=== PATIENT | female | born 1955 | race Caucasian/White ===

== ENCOUNTER 2017-06-26 19:51 | Emergency (ER) | payer BC ==
[2017-06-26 20:27] LABS: ADD MAN DIFF? NO
[2017-06-26 20:29] LABS: BASO # 0.1 x10^3/uL (0.0-0.2); BASO % 1 % (0-3); EOS # 0.2 x10^3/uL (0.0-0.7); EOS % 2 % (0-3); HEMATOCRIT 42.9 % (36.0-47.0); HEMOGLOBIN 14.2 g/dL (12.0-15.5); LYMPH # 3.9 x10^3/uL (1.0-4.8); LYMPH % 26 % (24-48); MEAN CORPUSCULAR HEMOGLOBIN 29 pg (25-35); MEAN CORPUSCULAR HGB CONC 33 g/dL (31-37); MEAN CORPUSCULAR VOLUME 86 fL (79-100); MONO % 7 % (0-9); NEUT # 9.8 x10^3uL (1.8-7.7); NEUT % 65 % (31-73); PLATELET COUNT 242 x10^3/uL (140-400); RED BLOOD COUNT 4.97 x10^6/uL (3.50-5.40); RED CELL DISTRIBUTION WIDTH 15.2 % (11.5-14.5); WHITE BLOOD COUNT 15.1 x10^3/uL (4.0-11.0)
[2017-06-26] MEDS: IV NORMAL SALINE 1000ML BAG 1,000 ML IV (20:32)
[2017-06-26] MEDS: ONDANSETRON PF 4 MG/2 ML VIAL. IV (20:34)
[2017-06-26] MEDS: KETOROLAC 30 MG/ML INJ. IV (20:35)
[2017-06-26] MEDS: MORPHINE SULFATE 4 MG/ML DISP.SYRIN. IV/SQ ×2 (20:36→21:42)
[2017-06-26 20:40] LABS: ANION GAP 10 (6-14); BLOOD UREA NITROGEN 30 mg/dL (7-20); BUN/CREATININE RATIO 27 (6-20); CARBON DIOXIDE 30 mmol/L (21-32); CHLORIDE 105 mmol/L (98-107); CREATININE 1.1 mg/dL (0.6-1.0); GFR 50.8; GLUCOSE 129 mg/dL (70-99); POTASSIUM 4.1 mmol/L (3.5-5.1); SODIUM 145 mmol/L (136-145)
[2017-06-26 20:45] LABS: ALBUMIN 3.3 g/dL (3.4-5.0); ALBUMIN/GLOBULIN RATIO 0.7 (1.0-1.7); ALK PHOS 119 U/L (46-116); ALT (SGPT) 30 U/L (14-59); AST (SGOT) 20 U/L (15-37); LIPASE 87 U/L (73-393); TOTAL BILIRUBIN 0.3 mg/dL (0.2-1.0); TOTAL PROTEIN 7.9 g/dL (6.4-8.2)
[2017-06-26 21:18] LABS: BILIRUBIN,URINE NEGATIVE (NEG); CLARITY,URINE CLEAR; COLOR,URINE YELLOW; GLUCOSE,URINE NEGATIVE (NEG); NITRITE,URINE NEGATIVE (NEG); PH,URINE 5.5; PROTEIN,URINE NEGATIVE (NEG-TRACE); UROBILINOGEN,URINE 0.2 mg/dL (0.2 mg/dL)
[2017-06-26 21:25] LABS: AMORPHOUS SEDIMENT,UR PRESENT /HPF; BACTERIA,URINE FEW /HPF (0-FEW); RBC,URINE TNTC /HPF (0-2); SQUAMOUS EPITHELIAL CELL,UR MOD /LPF
== END 2017-06-26 22:12 | disposition home or self-care (01) ==
LOC: ER 19:51
DX: N13.2 Hydronephrosis with renal and ureteral calculous obstruction (principal); R10.9 Unspecified abdominal pain; Z79.891 Long term (current) use of opiate analgesic; Z79.899 Other long term (current) drug therapy; Z88.2 Allergy status to sulfonamides
CPT/HCPCS: 36415; 74176; 80053; 81001; 83690; 85025; 87086; 96374; 96375; 99285; J1885; J2270; J2405; J7030

== ENCOUNTER → 2017-06-27 | Outpatient (CLI) | payer BC | END | disposition home or self-care (01) | LOC: RAD 14:06 | DX: N20.2 Calculus of kidney with calculus of ureter (principal) | CPT/HCPCS: 74018 ==

== ENCOUNTER → 2017-09-12 | Outpatient (CLI) | payer BC | END | disposition home or self-care (01) | LOC: RAD 09:16 | DX: I87.8 Other specified disorders of veins (principal); Z87.442 Personal history of urinary calculi | CPT/HCPCS: 74018 ==

== ENCOUNTER 2020-06-10 13:25 | Inpatient (IN) | payer BC ==
[~2020-06-10] VITALS: Ht 160 cm; Wt 128.3 kg
[~2020-06-10 13:25] MED LIST: HYDR-3164 PO; NITR100C62 PO; ONDA4TAB12 PO; TAMS0.4C97 PO
[2020-06-10] MEDS ORDERED: MORPHINE SULFATE 10 MG/ML VIAL. IV ONE ×2 (14:00→15:30)
--- NOTE | 2020-06-10 14:40 | RAD ---
EXAM: Right humerus, 2 views; right forearm, 2 views; right knee, 4 views. HISTORY: Pain. Fall. COMPARISON: None. FINDINGS: Right humerus: 2 views of the right humerus are obtained. There is a comminuted displaced humeral hea d and neck fracture. There is severe subacromial clavicular joint space narrowing with subchondral sc lerosis, subchondral cyst formation and marginal spurring. This includes an inferiorly directed dista l clavicular spur and subacromial spur. There is advanced degenerative change involving the visualize d cervical spine. Right forearm, 2 views of the right forearm are obtained. There is no acute fracture, dislocation or subluxation. There is mild degenerative spurring involving the base of the first metacarpal. Right knee: 4 views of the right knee are obtained. There is no fracture, dislocation or subluxation. There is enthesopathy along the patella. This includes a suspected small chronic fragment osteophyte superior to the patella. There is no joint effusion. IMPRESSION: 1. Comminuted displaced right humeral head and neck fracture. 2. Severe right acromioclavicular joint osteoarthritis. 3. Right patellar enthesopathy. Electronically signed by: Padmini Schaffer MD (06/10/2020 2:38 PM) [facility]
--- NOTE | 2020-06-10 15:23 | ED.ADGEN ---
Past Medical History Past Medical History: Cancer, Hypotension, Kidney Stone, UTI Additional Past Medical Histor: HERPES, BREAST Past Surgical History: Cancer Surgery, Tubal ligation Additional Past Surgical Histo: LEFT BREST LUMPECTOMY Smoking Status: Never Smoker Alcohol Use: None Drug Use: None General Adult EDM: Chief Complaint: UPPER EXTREMITY PAIN HPI: HPI: Patient is 64-year-old female presents to the emergency room after falling. Patient states that she tripped over a dog kennel and fell forward landing on he r right knee. She hit her right arm on the refrigerator on her way down. She is unsure if she tried to catch herself. She denies hitting her head. She does not have loss of consciousness. She not have any syncopal episodes. Patient has pain starting in her lower shoulder that radiates down into her forearm. States she is able to move her wrist and straighten out her arm. She states that she did hit her knee but she was able to walk after the incident. She does not believe that anything is broken within her knee. Review of Systems: Review of Systems: Complete ROS is negative unless otherwise documented in HPI Current Medications: Current Medications Medications (Trade) Dose Ordered Sig/Karsten Start Time Stop Time Status Last Admin Dose Admin Methocarbamol (Robaxin) 500 mg 1X STAT 06/10/20 16:17 06/10/20 16:24 DC 06/10/20 16:32 500 MG Morphine Sulfate (Morphine Sulfate) 5 mg 1X ONCE 06/10/20 15:30 06/10/20 15:31 DC 06/10/20 15:43 5 MG Allergies: Allergies: Allergies Coded Allergies Type Severity Reaction Last Updated Verified Sulfa (Sulfonamide Antibiotics) Allergy Unknown 06/26/17 Yes Physical Exam: PE: General: Awake, alert, NAD. Well Nourished, well hydrated. Cooperative HEENT: Atraumatic, EOMI, PERRL, airway patent, moist oral mucosa Neck: Supple, trachea midline Respiratory: CTA bilaterally, normal effort, no wheezing/crackles CV: RRR, no murmur, cap refill <2 GI: Soft, nondistended, nontender, no masses MSK: Right upper arm deformity, 2+ radial pulse, intact distal sensation, intact movement of elbow, wrist, hand Skin: Warm, dry, intact Neuro: A&O x3, speech NL, sensory and motor grossly intact, no focal deficits Psych: Normal affect, normal mood, not suicidal or homicidal Current Patient Data: Vital Signs: Vital Signs Date Time Temp Pulse Resp B/P (MAP) Pulse Ox O2 Delivery O2 Flow Rate FiO2 06/10/20 13:29 98.1 74 20 148/80 (102) 94 Room Air 98.1 EKG: EKG: [] Heart Score: C/O Chest Pain: N/A Risk Factors: Risk Factors: DM, Current or recent (<one month) smoker, HTN, HLP, family history of CAD, obesity. Risk Scores: Score 0 - 3: 2.5% MACE over next 6 weeks - Discharge Home Score 4 - 6: 20.3% MACE over next 6 weeks - Admit for Clinical Observation Score 7 - 10: 72.7% MACE over next 6 weeks - Early Invasive Strategies Radiology/Procedures: Radiology/Procedures: [] Course & Med Decision Making: Course & Med Decision Making Pertinent Labs and Imaging studies reviewed. (See chart for details) Patient is 64-year-old female who presents to the emergency room complaining of upper arm pain after a fall. X-rays were ordered of the right arm and knee. Patient has a humerus head and neck fracture. Patient was put in a sling. Pain was treated with morphine. Patient did receive fentanyl prior to arrival. Patient has a humerus neck and head fracture with dislocation. CT was ordered per orthopedic surgery recommendation. Patient will be n.p.o. at midnight. Covid test was ordered. Patient will be admitted to the hospital. Dragon Disclaimer: Dragon Disclaimer: This electronic medical record was generated, in whole or in part, using a voice recognition dictation system. Departure Departure Impression: Primary Impression: Humerus head fracture Disposition: ADMITTED INPATIENT Condition: STABLE Referrals: BLADE ROBISON MD (PCP) TEOFILO PENALOZA MD Jun 10, 2020 15:23
[2020-06-10] MEDS ORDERED: METHOCARBAMOL 500 MG TABLET PO STA (16:17)
--- NOTE | 2020-06-10 17:57 | PDOC1 ---
History and Physical Date of Admission Date of Admission DATE: 06/10/20 TIME: 17:44 Identification/Chief Complaint Chief Complaint Fall Source Source: Patient History of Present Illness History of Present Illness Patient 64-year-old female who presents to the ER after mechanical fall today. He states he tripped over a dog kennel and landed on her right arm. She initially complains of pain 10/10. Pain is worse with movement. She denies any head injury. X-ray in ER showed comminuted displaced right humeral head and neck fracture. Orthopedic surgery was consulted and recommended admission for surgery tomorrow. Will admit patient for further medical management. Past Medical History Past Medical History Breast cancer, hypotension, kidney stones, UTIs, HSV Past Surgical History Past Surgical History Left breast lumpectomy, tubal ligation Family History Family History Denies family history Social History Smoke: No ALCOHOL: none Drugs: None Current Problem List Problem List Problems Medical Problems: (1) Humerus head fracture Status: Acute Current Medications Current Medications Current Medications Morphine Sulfate (Morphine Sulfate) 5 mg 1X ONCE IV Last administered on 06/10/20at 14:01; Start 06/10/20 at 14:00; Stop 06/10/20 at 14:01; Status DC Morphine Sulfate (Morphine Sulfate) 5 mg 1X ONCE IV Last administered on 06/10/20at 15:43; Start 06/10/20 at 15:30; Stop 06/10/20 at 15:31; Status DC Methocarbamol (Robaxin) 500 mg 1X STAT PO Last administered on 06/10/20at 16:32; Start 06/10/20 at 16:17; Stop 06/10/20 at 16:24; Status DC Active Scripts Active Ondansetron Odt (Ondansetron) 4 Mg Tab.rapdis 1 Tab PO PRN Q6-8HRS [place] 5-325 Tablet (Acetaminophen/Hydrocodone Bitart) 1 Each Tablet 1 Tab PO PRN Q6HRS PRN Macrobid 100 Mg Capsule (Nitrofurantoin Monohyd/M-Cryst) 100 Mg Capsule 1 Cap PO BID Flomax (Tamsulosin Hcl) 0.4 Mg Cap.er.24h 1 Cap PO DAILY 30 Days Allergies Allergies: Coded Allergies: Sulfa (Sulfonamide Antibiotics) (Verified Allergy, Unknown, 06/26/17) ROS Review of System GENERAL: No history of weight change, weakness or fevers. SKIN: No bruising, hair changes or rashes. EYES: No blurred, double or loss of vision. NOSE AND THROAT: No history of nosebleeds, hoarseness or sore throat. HEART: Denies chest pain, denies palpitations. LUNGS: Denies cough, hemoptysis, wheezing or shortness of breath. GASTROINTESTINAL: Denies nausea, vomiting, abdominal pain. GENITOURINARY: Denies dysuria, frequency, urgency, hematuria. NEUROLOGIC: Denies history of numbness, tingling, tremor or weakness. PSYCHIATRIC: Denies anxiety, denies depression. ENDOCRINE: No history of heat or cold intolerance, polyuria or polydipsia. EXTREMITIES: Right arm pain, right arm weakness. Physical Exam Physical Exam General: Alert, Oriented X3, Cooperative, moderate distress HEENT: PERRLA, EOMI Lungs: Clear to auscultation, Normal air movement Heart: RRR, no murmurs Cardiovascular: S1, S2 Abdomen: Normal bowel sounds, Soft, No tenderness Extremities: Right upper arm deformity; right arm and shoulder splint. No clubbing, No cyanosis Skin: No rashes, No significant lesion Neuro: Normal speech, Normal tone, Sensation intact Psych/Mental Status: Mental status NL, Mood NL Vitals Vitals Vital Signs Date Time Temp Pulse Resp B/P (MAP) Pulse Ox O2 Delivery O2 Flow Rate FiO2 06/10/20 13:29 98.1 74 20 148/80 (102) 94 Room Air 98.1 Labs Labs Laboratory Tests Test 06/10/20 16:34 SARS-CoV-2 Antigen (Rapid) Negative (NEGATIVE) Laboratory Tests Test 06/10/20 16:34 SARS-CoV-2 Antigen (Rapid) Negative (NEGATIVE) Images Images HUMERUS RIGHT EXAM: Right humerus, 2 views; right forearm, 2 views; right knee, 4 views. HISTORY: Pain. Fall. COMPARISON: None. FINDINGS: Right humerus: 2 views of the right humerus are obtained. There is a comminuted displaced humeral head and neck fracture. There is severe subacromial clavicular joint space narrowing with subchondral sclerosis, subchondral cyst formation and marginal spurring. This includes an inferiorly directed distal clavicular spur and subacromial spur. There is advanced degenerative change involving the visualized cervical spine. Right forearm, 2 views of the right forearm are obtained. There is no acute fracture, dislocation or subluxation. There is mild degenerative spurring involving the base of the first metacarpal. Right knee: 4 views of the right knee are obtained. There is no fracture, dislocation or subluxation. There is enthesopathy along the patella. This includes a suspected small chronic fragment osteophyte superior to the patella. There is no joint effusion. IMPRESSION: 1. Comminuted displaced right humeral head and neck fracture. 2. Severe right acromioclavicular joint osteoarthritis. 3. Right patellar enthesopathy. VTE Prophylaxis Ordered VTE Prophylaxis Devices: No VTE Pharmacological Prophylaxi: Yes Assessment/Plan Assessment/Plan Comminuted displaced right humeral head and neck fracture Plan: Consultation placed to orthopedic surgery Patient will be scheduled for surgery tomorrow Will provide pain management CT right arm pending PT/OT FEN - Cardiac diet; then n.p.o. after midnight PPX - Heparin FULL CODE Dispo - inpatient for above; patient names her as her surrogate decision-maker Justifications for Admission Other Justification CARLEY PETERSON MD Jun 10, 2020 17:57
[2020-06-10] MEDS ORDERED: MAG HYDROX/ALUMINUM HYD/SIMETH 30 ML ORAL.SUSP PO PRN (18:00)
[2020-06-10] MEDS ORDERED: CALCIUM CARBONATE 500 MG TAB.CHEW PO PRN (18:00)
[2020-06-10] MEDS ORDERED: oxyCODONE IR 5 MG TABLET PO PRN (18:00)
[2020-06-10] MEDS ORDERED: ONDANSETRON PF 4 MG/2 ML VIAL. IVP PRN (18:00)
[2020-06-10] MEDS ORDERED: ZOLPIDEM 5 MG TABLET. PO PRN (18:00)
[2020-06-10] MEDS ORDERED: MAGNESIUM HYDROXIDE 2,400 MG/30 ML ORAL.SUSP. PO PRN (18:00)
[2020-06-10] MEDS ORDERED: HYDROcodone/APAP 5/325MG 1 TAB TABLET PO PRN (18:00)
[2020-06-10] MEDS ORDERED: BISACODYL 10 MG SUPP.RECT. PR PRN (18:00)
[2020-06-10] MEDS ORDERED: ACETAMINOPHEN 325 MG TABLET. PO PRN (18:00)
--- NOTE | 2020-06-10 18:01 | RAD ---
Examination: CT right shoulder without contrast HISTORY: History of fracture COMPARISON: Radiograph same day exam TECHNIQUE: Axial CT images of the right shoulder performed without contrast. Coronal and sagittal ref ormats are performed Exposure: One or more of the following individualized dose reduction techniques were utilized for thi s examination: 1. Automated exposure control 2. Adjustment of the mA and/or kV according to patient size 3. Use of iterative reconstruction technique FINDINGS: There is comminuted displaced fracture of the humerus head and neck with fracture extending to the gr eater trochanter.The fractured portions of the of the humerus head and neck is within the glenoid inf eriorly and the distal portion of the fractured portion of the humerus is displaced and dislocated an teriorly and inferiorly in relation to glenoid. Small shoulder joint effusion. Moderate degenerative acromioclavicular joint. The right lung grossly appears unremarkable. IMPRESSION: 1. Fracture dislocation of the humerus as described above. Electronically signed by: Solomon Lott MD (06/10/2020 5:59 PM) [id number]
[2020-06-10] MEDS: HYDROcodone/APAP 5/325MG 1 TAB TABLET PO PRN ×2 (19:48→22:05)
[2020-06-10 21:15] VITALS: BP 165/89
--- NOTE | 2020-06-10 21:15 | NUR ---
Admitted to room 412 s/p fracture right humerus. "I fell in the kitchen over a cat kennel." Has scrapes on left forearm. Small abrasion on right knee. States a knee xray was taken and it does not hurt. Wearing sling to right arm. Ice packs applied. Radial pulse 2+, arm pink and fingers moving. Patient unable to name her home meds. States she does check her FSBS daily. States her is obese also and they use scooters if they go out. Has grown step son living w/ them. Informed of NPO status, refuses snack. 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 Call light in reach.
[2020-06-10] MEDS: HEPARIN for SUB-Q USE 5,000 UNIT/ML VIAL. SQ SCH (22:00)
[2020-06-10 23:27] VITALS: BP 149/87
--- NOTE | 2020-06-10 23:43 | NUR ---
Home meds: Unable to state dosages and frequency on some. MVI "thyroid" Metformin BID Gabapentin HS Melatonin Flonase Lortab
[2020-06-11] VITALS (10 sets, daily range): BP systolic 114–143; BP diastolic 59–87
[2020-06-11] MEDS: MORPHINE SULFATE 10 MG/ML VIAL. IV PRN ×4 (04:34→12:51)
[2020-06-11] MEDS: HEPARIN for SUB-Q USE 5,000 UNIT/ML VIAL. SQ SCH ×3 (05:57→20:15)
--- NOTE | 2020-06-11 10:14 | NUR ---
SW following. Discussed with RN, pt from home with spouse, 2L, cardiac diet, rapid COVID-19 negative. Pt having surgery today at 1430. PT/OT to work with pt after surgery. SW will continue to follow.
[2020-06-11] MEDS ORDERED: HYDROmorphone 2 MG/ML VIAL IVP PRN (12:45)
[2020-06-11] MEDS ORDERED: fentaNYL PF VIAL 100 MCG/2 ML VIAL IVP PRN ×2 (12:45)
[2020-06-11] MEDS ORDERED: PROCHLORPERAZINE 10 MG/2 ML VIAL. IVP PRN (12:45)
[2020-06-11] MEDS ORDERED: MORPHINE SULFATE 2 MG/ML VIAL. IVP PRN ×2 (12:45→18:00)
[2020-06-11] MEDS ORDERED: IV RINGERS,LACTATED 1000ML 1,000 ML IV SCH (12:45)
[2020-06-11] MEDS ORDERED: MORPHINE SULFATE 5 MG, KETOROLAC 30MG VIAL 30 MG, ROPIVacaine 0.5% PF 60 ML, EPINEPHrin... INT ART ONE (13:00)
--- NOTE | 2020-06-11 13:35 | NUR ---
transferred to surgery. left arm in sling Addendum: 06/11/20 at 1520 by SANDRA ULLOA RN obtained home meds list and placed in [facility] [facility]
[2020-06-11] MEDS ORDERED: PROPOFOL 10 MG/ML (20ML) VIAL. IV ONE ×2 (13:36→15:56)
[2020-06-11] MEDS ORDERED: fentaNYL PF VIAL 100 MCG/2 ML VIAL ONE ×2 (13:36→18:11)
[2020-06-11] MEDS ORDERED: ROCURONIUM 50 MG/5 ML VIAL. ONE (13:36)
[2020-06-11] MEDS ORDERED: LIDOCAINE 2% PF 5 ML VIAL. ONE (13:36)
[2020-06-11] MEDS ORDERED: GABA300C18 PO (13:41)
[2020-06-11] MEDS ORDERED: MULT-121 PO (13:41)
[2020-06-11] MEDS ORDERED: PROVENTIL HFA6.7 G2 INH (13:41)
[2020-06-11] MEDS ORDERED: LEVO25TA4 PO (13:41)
[2020-06-11] MEDS ORDERED: FLUT16SP NS (13:41)
[2020-06-11] MEDS ORDERED: MELO15TA6 PO (13:41)
[2020-06-11] MEDS ORDERED: METF500T16 PO (13:41)
[2020-06-11] MEDS ORDERED: HYDR-2761 PO (13:41)
--- NOTE | 2020-06-11 14:03 | PDOC2 ---
CONSULT Date of Consult Date of Consult DATE: 06/11/20 TIME: 14:01 Reason for Consult Reason for Consult: Right proximal humerus fracture dislocation Identification/Chief Complaint Chief Complaint Right shoulder pain after a fall Source Source: Chart review, Patient History of Present Illness Reason for Visit: This 64-year-old primarily left-handed woman injured her right shoulder when she fell yesterday, tripping over a dog carrier. She initially complained of pain 10/10. Pain is worse with movement. She denies any head injury. X-ray in ER showed comminuted displaced right humeral head and neck fracture. Orthopedic surgery was consulted and she was admitted to the hospitalist service yesterday with plan for surgery today. Past Medical History Past Medical History Breast cancer, hypotension, kidney stones, UTIs, HSV Past Surgical History Past Surgical History Left breast lumpectomy, tubal ligation Social History No ALCOHOL: none Drugs: None Lives: with Family Current Problem List Problem List Problems Medical Problems: (1) Humerus head fracture Status: Acute Current Medications Current Medications Current Medications Morphine Sulfate (Morphine Sulfate) 5 mg 1X ONCE IV Last administered on 06/10/20at 14:01; Start 06/10/20 at 14:00; Stop 06/10/20 at 14:01; Status DC Morphine Sulfate (Morphine Sulfate) 5 mg 1X ONCE IV Last administered on 06/10/20at 15:43; Start 06/10/20 at 15:30; Stop 06/10/20 at 15:31; Status DC Methocarbamol (Robaxin) 500 mg 1X STAT PO Last administered on 06/10/20at 16:32; Start 06/10/20 at 16:17; Stop 06/10/20 at 16:24; Status DC Ondansetron HCl (Zofran) 4 mg PRN Q6HRS PRN IVP NAUSEA/VOMITING; Start 06/10/20 at 18:00 Al Hydroxide/Mg Hydroxide (Mylanta Plus Xs) 30 ml PRN Q3HRS PRN PO HEARTBURN / GAS; Start 06/10/20 at 18:00 Calcium Carbonate/ Glycine (Tums) 500 mg PRN Q3HRS PRN PO UPSET STOMACH; Start 06/10/20 at 18:00 Zolpidem Tartrate (Ambien) 5 mg PRN QHS PRN PO INSOMNIA, MAY REPEAT IN 1HR Last administered on 06/11/20at 00:03; Start 06/10/20 at 18:00 Oxycodone HCl (Roxicodone) 5 mg PRN Q3HRS PRN PO BREAKTHROUGH PAIN; Start 06/10/20 at 18:00 Acetaminophen/ Hydrocodone Bitart (Lortab 5/325) 1 tab PRN Q4HRS PRN PO MILD PAIN 1-3 Last administered on 06/10/20at 22:05; Start 06/10/20 at 18:00 Acetaminophen/ Hydrocodone Bitart (Lortab 5/325) 2 tab PRN Q4HRS PRN PO MODERATE PAIN, SEVERE PAIN; Start 06/10/20 at 18:00 Acetaminophen (Tylenol) 650 mg PRN Q6HRS PRN PO Headaches, Temp > 101.5F; Start 06/10/20 at 18:00 Magnesium Hydroxide (Milk Of Magnesia) 2,400 mg PRN Q12HR PRN PO CONSTIPATION; Start 06/10/20 at 18:00 Bisacodyl (Dulcolax Supp) 10 mg PRN DAILY PRN [place] CONSTIPATION; Start 06/10/20 at 18:00 Heparin Sodium (Porcine) (Heparin Sodium) 5,000 unit Q8HRS SQ ; Start 06/10/20 at 22:00 Morphine Sulfate (Morphine Sulfate) 5 mg PRN Q2HRS PRN IV PAIN Last adm inistered on 06/11/20at 12:51; Start 06/10/20 at 18:15 Morphine Sulfate 5 mg/Ketorolac Tromethamine 30 mg/Ropivacaine 60 ml/Epinephrine HCl 0.5 mg/Sodium Chloride 100 ml @ 100 mls/hr 1X ONCE INT ART ; Start 06/11/20 at 13:00; Stop 06/11/20 at 13:59; Status DC Fentanyl Citrate (Fentanyl 2ml Vial) 25 mcg PRN Q5MIN PRN IVP MILD PAIN 1-3; Start 06/11/20 at 12:45; Stop 06/11/20 at 22:00 Fentanyl Citrate (Fentanyl 2ml Vial) 50 mcg PRN Q5MIN PRN IVP MODERATE PAIN 4- 6; Start 06/11/20 at 12:45; Stop 06/11/20 at 22:00 Morphine Sulfate (Morphine Sulfate) 1 mg PRN Q10MIN PRN IVP SEVERE PAIN 7-10; Start 06/11/20 at 12:45; Stop 06/11/20 at 22:00 Ringer's Solution 1,000 ml @ 30 mls/hr Q24H IV ; Start 06/11/20 at 12:45; Stop 06/12/20 at 00:44 Hydromorphone HCl (Dilaudid) 0.5 mg PRN Q10MIN PRN IVP SEVERE PAIN 7-10, 2nd CHOICE; Start 06/11/20 at 12:45; Stop 06/11/20 at 22:00 Prochlorperazine Edisylate (Compazine) 5 mg PACU PRN PRN IVP NAUSEA, MRX1; Start 06/11/20 at 12:45; Stop 06/11/20 at 22:00 Propofol (Diprivan) 200 mg STK-MED ONCE IV ; Start 06/11/20 at 13:36; Stop 06/11/20 at 13:36; Status DC Lidocaine HCl (Lidocaine Pf 2% Vial) 5 ml STK-MED ONCE .ROUTE ; Start 06/11/20 at 13:36; Stop 06/11/20 at 13:36; Status DC Rocuronium [place] (Zemuron) 50 mg STK-MED ONCE .ROUTE ; Start 06/11/20 at 13:36; Stop 06/11/20 at 13:36; Status DC Fentanyl Citrate (Fentanyl 2ml Vial) 100 mcg STK-MED ONCE .ROUTE ; Start 06/11/20 at 13:36; Stop 06/11/20 at 13:36; Status DC Active Scripts Active Reported Fluticasone Propionate Nasal [place] (Fluticasone Propionate) 16 Gm [place].susp 2 [place] NS HS Multiple Vitamins (Multivitamin) 1 Each Tablet 1 Tab PO DAILY 30 Days Metformin Hcl 500 Mg Tablet 500 Mg PO BIDWMEALS Proventil Hfa (Albuterol Sulfate) 6.7 Gm Hfa.aer.ad 1 Puff INH DAILY Hydrocodone-Apap 5-325 (Hydrocodone Bit/Acetaminophen) 1 Tab Tablet 1 Tab PO PRN Q4HRS PRN Levothyroxine Sodium 25 Mcg Tablet 1 Tab PO DAILY Gabapentin (Gabapentin) 300 Mg Capsule 600 Mg PO HS Mobic (Meloxicam) 15 Mg Tablet 1 Tab PO DAILY Allergies Allergies: Coded Allergies: Sulfa (Sulfonamide Antibiotics) (Verified Allergy, Unknown, 06/26/17) ROS Review of System GENERAL: No history of weight change, weakness or fevers. SKIN: No bruising, hair changes or rashes. EYES: No blurred, double or loss of vision. NOSE AND THROAT: No history of nosebleeds, hoarseness or sore throat. HEART: Denies chest pain, denies palpitations. LUNGS: Denies cough, hemoptysis, wheezing or shortness of breath. GASTROINTESTINAL: Denies nausea, vomiting, abdominal pain. GENITOURINARY: Denies dysuria, frequency, urgency, hematuria. NEUROLOGIC: Denies history of numbness, tingling, tremor or weakness. PSYCHIATRIC: Denies anxiety, denies depression. ENDOCRINE: No history of heat or cold intolerance, polyuria or polydipsia. EXTREMITIES: Right arm pain, right arm weakness. Physical Exam General: Alert, Cooperative HEENT: Atraumatic Lungs: Normal air movement Heart: Regular rate Abdomen: Soft Extremities: Other (The gross alignment of the right shoulder is normal and does not appear dislocated despite the CT scan results although the swelling and body habitus obscure the landmarks. The patient holds the shoulder splinted without any spontaneous motion. There is tenderness at the proximal humerus. There is no ecchymosis at this time. The skin is intact over the fracture and otherwise normal. There is slight swelling throughout the upper extremity. Sensory and motor function seem intact for the radial ulnar and median nerves but are difficult to assess completely because of the shoulder pain. Capillary refill is normal without evidence of ischemia or vascular injury. Rotator cuff strength is not possible to test today because of the shoulder pain) Neuro: Normal tone, Sensation intact Psych/Mental Status: Mental status NL, Mood NL Vitals VITALS Vital Signs Date Time Temp Pulse Resp B/P (MAP) Pulse Ox O2 Delivery O2 Flow Rate FiO2 06/11/20 10:39 20 Room Air 06/11/20 10:39 98.2 93 127/66 (86) 94 98.2 06/11/20 08:00 2.0 Labs Labs Laboratory Tests Test 06/10/20 16:34 06/10/20 22:58 SARS-CoV-2 RNA (LOC) Negative (Negative) SARS-CoV-2 Antigen (Rapid) Negative (NEGATIVE) Glucose (Fingerstick) 149 mg/dL (70-99) Laboratory Tests Test 06/10/20 16:34 06/10/20 22:58 SARS-CoV-2 RNA (LOC) Negative (Negative) SARS-CoV-2 Antigen (Rapid) Negative (NEGATIVE) Glucose (Fingerstick) 149 mg/dL (70-99) Images Images Reports reviewed, images independently reviewed. [facility] [address] [place] [address] IMAGING REPORT Signed PATIENT: TERI VEGA ACCOUNT: [id number] : 1955 LOCATION: ER AGE: 64 SEX: F EXAM STATUS: REG ER ORD. PHYSICIAN: TEOFILO PENALOZA MD REASON: fall,extreme pain right shoulder PROCEDURE: HUMERUS RIGHT EXAM: Right humerus, 2 views; right forearm, 2 views; right knee, 4 views. HISTORY: Pain. Fall. COMPARISON: None. FINDINGS: Right humerus: 2 views of the right humerus are obtained. There is a comminuted displaced humeral head and neck fracture. There is severe subacromial clavicular joint space narrowing with subchondral sclerosis, subchondral cyst formation and marginal spurring. This includes an inferiorly directed distal clavicular spur and subacromial spur. There is advanced degenerative change involving the visualized cervical spine. Right forearm, 2 views of the right forearm are obtained. There is no acute fracture, dislocation or subluxation. There is mild degenerative spurring involving the base of the first metacarpal. Right knee: 4 views of the right knee are obtained. There is no fracture, dislocation or subluxation. There is enthesopathy along the patella. This includes a suspected small chronic fragment osteophyte superior to the patella. There is no joint effusion. IMPRESSION: 1. Comminuted displaced right humeral head and neck fracture. 2. Severe right acromioclavicular joint osteoarthritis. 3. Right patellar enthesopathy. Electronically signed by: Padmini Fajardo MD (06/10/2020 2:38 PM) [facility] DICTATED and SIGNED BY: PADMINI FAJARDO MD DATE: 06/10/20 1435 [facility] [address] [place] [address] IMAGING REPORT Signed PATIENT: TERI VEGA ACCOUNT: [id number] : 1955 LOCATION: ER AGE: 64 SEX: F EXAM STATUS: REG ER ORD. PHYSICIAN: TEOFILO PENALOZA MD REASON: fracture PROCEDURE: CT UPPR EXTREMTY WO CONTRST RT Examination: CT right shoulder without contrast HISTORY: History of fracture COMPARISON: Radiograph same day exam TECHNIQUE: Axial CT images of the right shoulder performed without contrast. Coronal and sagittal reformats are performed Exposure: One or more of the following individualized dose reduction techniques were utilized for this examination: 1. Automated exposure control 2. Adjustment of the mA and/or kV according to patient size 3. Use of iterative reconstruction technique FINDINGS: There is comminuted displaced fracture of the humerus head and neck with fracture extending to the greater trochanter.The fractured portions of the of the humerus head and neck is within the glenoid inferiorly and the distal portion of the fractured portion of the humerus is displaced and dislocated anteriorly and inferiorly in relation to glenoid. Small shoulder join t effusion. Moderate degenerative acromioclavicular joint. The right lung grossly appears unremarkable. IMPRESSION: 1. Fracture dislocation of the humerus as described above. Electronically signed by: Solomon Lott MD (06/10/2020 5:59 PM) [id number] Assessment/Plan Assessment/Plan 4-part fracture of surgical neck of right humerus, initial encounter for closed fracture S42.113I I spoke to her about options for treatment. Based on her bone quality, and the severity of the fracture dislocation I do recommend arthroplasty treatment rather than any attempt at internal fixation. Nonoperative treatment would also be a consideration but she has severe pain and this is nearly dislocated and surgery seems indicated acutely in this case, rather than a delayed reverse arthroplasty. She has no history of prior rotator cuff issues, so she may have an intact cuff. I would recommend a hemiarthroplasty at this time with tuberosity repair but I am prepared to do reverse shoulder arthroplasty if that becomes necessary intraoperatively. I spoke to her about the expected outcomes, and that regardless of treatment she is unlikely to get a normal shoulder but she should get a functional shoulder with minimal pain if things go as expected. We talked about the potential risks of stiffness, dislocation, infection, additional fractures, neurovascular injury, bleeding, need for revision surgery, or other potential surgical or anesthetic complications. All of her questions about surgery were answered and she desires to proceed. PATTIE PUGH MD Jun 11, 2020 14:03
[2020-06-11] MEDS ORDERED: ceFAZolin SODIUM 3 GM in IV DEXTROSE 5% 100ML 100 ML IV PRN (14:30)
--- NOTE | 2020-06-11 14:34 | PDOC ---
[facility] PROGRESS NOTE Date of Service DOS: DATE: 06/11/20 TIME: 14:39 Chief Complaint Chief Complaint Comminuted displaced right humeral head and neck fracture IFG - sliding scale Nephrolithiasis - cont hydration Plan: Consultation placed to orthopedic surgery Patient will be scheduled for surgery Will provide pain management PT/OT FEN - Cardiac diet; then n.p.o. after midnight PPX - Heparin FULL CODE Dispo - inpatient for above; patient names her as her surrogate decision-maker History of Present Illness History of Present Illness Ms Maharaj is a 64-year-old female w/ PMHx nephrolithiasis, breast cancer s/p lumpectomy, who presents to the ER after mechanical fall today. He states he tripped over a dog kennel and landed on her right arm. She initially complains of pain 10/10. Pain is worse with movement. She denies any head injury. X-ray in ER showed comminuted displaced right humeral head and neck fracture. Orthopedic surgery was consulted and recommended admission for ORIF. Admit patient for further medical management. Glucose elevated, no history of insulin use, but on meformin, presumably for IFG or prediabetes. Pain is controlled when not moving her arm, she is resting it on pillow. No SOB or CP. She is hungry Vitals/I&O Vitals/I&O: Vital Signs Date Time Temp Pulse Resp B/P (MAP) Pulse Ox O2 Delivery O2 Flow Rate FiO2 06/11/20 10:39 20 Room Air 06/11/20 10:39 98.2 93 127/66 (86) 94 98.2 06/11/20 08:00 2.0 I & O 06/10/20 06/10/20 06/11/20 14:52 22:52 06:52 Intake Total 240 ml Balance 240 ml Physical Exam General: Alert, Cooperative Heart: Regular rate Abdomen: Soft Extremities: Other (The gross alignment of the right shoulder is normal and does not appear dislocated despite the CT scan results although the swelling and body habitus obscure the landmarks. The patient holds the shoulder splinted without any spontaneous motion. There is tenderness at the proximal humerus. There is no ecchymosis at this time. The skin is intact over the fracture and otherwise normal. There is slight swelling throughout the upper extremity. Sensory and motor function seem intact for the radial ulnar and median nerves but are difficult to assess completely because of the shoulder pain. Capillary refill is normal without evidence of ischemia or vascular injury. Rotator cuff strength is not possible to test today because of the shoulder pain) Labs Labs: Laboratory Tests Test 06/10/20 16:34 06/10/20 22:58 SARS-CoV-2 RNA (LOC) Negative (Negative) SARS-CoV-2 Antigen (Rapid) Negative (NEGATIVE) Glucose (Fingerstick) 149 mg/dL (70-99) Assessment and Plan Assessmemt and Plan Problems Medical Problems: (1) 4-part fracture of surgical neck of right humerus, initial encounter for closed fracture Status: Acute (2) Humerus head fracture Status: Acute Goals of Care: Advance Care Planning: Total time spent [id number] with patient greater than 16 minutes in discussion with goals of care, comfort care, end-of-life care, pain management, code status Comment Review of Relevant I have reviewed the following items evette (where applicable) has been applied. Medications: Current Medications Medications (Trade) Dose Ordered Sig/Karsten Route PRN Reason Start Time Stop Time Status Last Admin Dose Admin Morphine Sulfate (Morphine Sulfate) 5 mg 1X ONCE IV 06/10/20 15:30 06/10/20 15:31 DC 06/10/20 15:43 Methocarbamol (Robaxin) 500 mg 1X STAT PO 06/10/20 16:17 06/10/20 16:24 DC 06/10/20 16:32 Zolpidem Tartrate (Ambien) 5 mg PRN QHS PRN PO INSOMNIA, MAY REPEAT IN 1HR 06/10/20 18:00 06/11/20 00:03 Acetaminophen/ Hydrocodone Bitart (Lortab 5/325) 1 tab PRN Q4HRS PRN PO MILD PAIN 1-3 06/10/20 18:00 06/10/20 22:05 Morphine Sulfate (Morphine Sulfate) 5 mg PRN Q2HRS PRN IV PAIN 06/10/20 18:15 06/11/20 12:51 Ringer's Solution 1,000 ml @ 30 mls/hr Q24H IV 06/11/20 12:45 06/12/20 00:44 06/11/20 14:26 Justifications for Admission Other Justification Right shoulder fracture MONICA JUAREZ MD Jun 11, 2020 14:33
[2020-06-11] MEDS: INSULIN LISPRO 100 UNIT/ML 3ML VIAL for OP,RR ONLY. SQ PRN ×2 (14:37→18:28)
[2020-06-11] MEDS ORDERED: SUCCINYLCHOLINE 200 MG/10 ML VIAL. ONE (14:40)
[2020-06-11] MEDS ORDERED: ePHEDrine PF IN SALINE 50 MG/10 ML SYRINGE. IV ONE (15:32)
[2020-06-11] MEDS ORDERED: PHENYLEPHRINE in 0.9% NACL PF 1 MG/10 ML SYRINGE. IV ONE (15:32)
[2020-06-11] MEDS ORDERED: DESFLURANE 61 TO 120 MINUTES IH ONE (15:32)
[2020-06-11] MEDS ORDERED: DEXAMETHASONE SOD PHOS 4 MG/ML VIAL ONE (15:34)
[2020-06-11] MEDS ORDERED: ONDANSETRON PF 4 MG/2 ML VIAL. ONE (15:34)
[2020-06-11] MEDS ORDERED: GLYCOPYRROLATE 1 MG/5 ML VIAL. ONE (15:34)
[2020-06-11] MEDS ORDERED: NEOSTIGMINE METHYLSULFATE 5 MG/5 ML SYRINGE. ONE (15:35)
[2020-06-11] MEDS ORDERED: VANCOMYCIN 1 GM VIAL. ONE (16:35)
[2020-06-11] MEDS ORDERED: DEXTROSE 50% 25 GM / 50ML DISP.SYRIN. IV PRN ×2 (18:00→22:15)
[2020-06-11] MEDS ORDERED: ONDANSETRON PF 4 MG/2 ML VIAL. IVP PRN (18:00)
[2020-06-11] MEDS ORDERED: POLYETHYLENE GLYCOL 3350 17 GM PACKET. PO PRN (18:00)
[2020-06-11] MEDS ORDERED: oxyCODONE/APAP 5/325 1 TAB TABLET PO PRN ×2 (18:00→18:15)
[2020-06-11] MEDS ORDERED: MORPHINE SULFATE 4 MG/ML VIAL. IVP PRN (18:00)
[2020-06-11] MEDS: fentaNYL PF VIAL 100 MCG/2 ML VIAL IVP PRN ×3 (18:14→18:36)
[2020-06-11] MEDS ORDERED: PROCHLORPERAZINE 10 MG/2 ML VIAL. ONE (18:24)
--- NOTE | 2020-06-11 18:24 | PDOC4 ---
Operative Note Operative Note Date of Procedure: June 11, 2020 Pre-Op Diagnosis: 4-part fracture of surgical neck of right humerus, initial encounter for closed fracture S42.241A Post-Op Diagnosis: 4-part fracture of surgical neck of right humerus, initial encounter for closed fracture S42.241A Procedure: Right shoulder, open treatment of proximal humeral fracture, with tuberosity repair and with proximal humeral prosthetic replacement CPT 48408 Surgeon: Pattie Ward MD Supervisor Fertilizer Processing: Cher CAMPOS Anesthesia: General EBL: 300 mL Specimens Obtained: none Complications: none Drains: none Implants: Biomet comprehensive shoulder system humeral fracture stem porous plasma 8 mm, 122 mm long. Comprehensive shoulder system fracture positioning sleeve 10 mm sleeve for use with 8 mm fracture stem. Comprehensive shoulder system standard taper adapter. Comprehensive shoulder system modular head variable offset 38 mm head, 19 mm height, 39 mm radius of curvature. Indications for Procedure: This patient is a 64-year-old with comminuted displ aced right proximal humerus fracture. I spoke to her about options for treatment. Based on her bone quality, and the severity of the fracture dislocation I do recommend arthroplasty treatment rather than any attempt at internal fixation. Nonoperative treatment would also be a consideration but she has severe pain and this is nearly dislocated and surgery seems indicated acutely in this case, rather than a delayed reverse arthroplasty. She has no history of prior rotator cuff issues, so she may have an intact cuff. I would recommend a hemiarthroplasty at this time with tuberosity repair but I am prepared to do reverse shoulder arthroplasty if that becomes necessary intraoperatively. I spoke to her about the expected outcomes, and that regardless of treatment she is unlikely to get a normal shoulder but she should get a functional shoulder with minimal pain if things go as expected. We talked about the potential risks of stiffness, dislocation, infection, additional fractures, neurovascular injury, bleeding, need for revision surgery, or other potential surgical or anesthetic complications. All of her questions about surgery were answered and she desires to proceed. Procedure in Detail: The patient was identified in the preoperative holding area. The correct right shoulder was marked by me with a surgical marker. The patient was taken to the operating room where a general anesthetic was used. Preoperative antibiotics were given intravenously. A timeout procedure was performed. The patient was positioned in the beachchair position, and sterile skin prep was performed followed by sterile drapes. The arm was draped in an impervious stockinette, and a spider arm gonzalez was used. A deltopectoral incision was planned with a skin marker and bony landmarks were marked. The skin incision was made over the coracoid, and extended to the deltoid insertion laterally. Sharp dissection was used and Bovie electrocautery was used for hemostasis. The cephalic vein was ligated. The deltoid was retracted carefully. The fracture was easily identified and markedly displaced. A Kobel retractor was placed inferior to the coracoid along the strap muscles, with care made to protect the musculocutaneous nerve. The deltoid was retracted laterally with the Kobell. The biceps tendon was identified and used as a landmark. The intertubercular sulcus was divided with an osteotome, and multiple #5 Ethibond sutures were placed as traction sutures and the greater and lesser tuberosities. These were retracted. The humeral head fragment was comminuted and was removed. A biceps tenotomy was performed. The humeral shaft was prepared.. Sequential reaming was performed with a T- handle manual reamer. The height of the final stem was assessed based on the remaining bony anatomy such as the medial calcar curvature of the humerus. Based on the reamer size, the tap was used for the shaft, and then the 10 mm fracture positioning sleeve was inserted without difficulty to its planned depth. Trial components were applied using the retroversion guides, and a satisfactory alignment and height appeared satisfactory with the size 8 trial implant for a cemented stem. I proceeded with a hemiarthroplasty for treatment of the fracture. Trial head sizes were used, until satisfactory shoulder stability was noted with good range of motion. Trial head and neck combinations were used to find the appropriate height and stability. Slight subluxation of the humeral head was possible, slightly less than 50% of the glenoid with to sublux the head with manual pressure. The trial components were removed. All outer gloves were changed. Copious saline irrigation was used with the [place] InterPulse nozzleman. The Arthrex FiberTape Tendon Compression Bridge system was used for the tuberosity repair. Drill holes and sutures for this device were passed before the final implants were placed, with the sutures planned passing medial to the final stem. One package of Rally HV bone cement was vacuum mixed and placed into a cement gun. The cement was applied to the midportion of the humeral stem prosthesis. The final implant was inserted without difficulty. This was kept at its planned height until the cement hardened. The final 38 mm x 19 mm head was secured to the upper humeral baseplate, and the shoulder reduced a final time. Good stability throughout the range of motion was noted. The tensioning device for the Arthrex fiber tape tendon compression device was used. Sutures were tensioned and then tied. Augmentation suture was performed to further stabilize the tuberosities using sutures through the holes in the prosthesis, with #5 Ethibond suture. Copious saline irrigation was used. 1 g of vancomycin was placed. The deltoid was repaired with #1 Vicryl [id number] sutures. The skin edges were injected with 0.25% bupivacaine with epinephrine. My trust manager assistant closed the subcutaneous tissues with #2-0 Vicryl inverted interrupted sutures. She repaired the skin with damir. Sterile dressings were applied. Needle and sponge counts were correct. There were no apparent complications. PATTIE WARD MD Jun 11, 2020 18:24
--- NOTE | 2020-06-11 19:45 | NUR ---
Returned from PACU, post op VS per unit protocol started . .Plan of care discussed with patient and .
--- NOTE | 2020-06-11 19:49 | RAD ---
EXAM: Right shoulder, 2 views. HISTORY: Arthroplasty. COMPARISON: None. FINDINGS: 2 views of the right shoulder obtained. There is a right shoulder arthroplasty in expected position. There is soft tissue gas and there are damir due to recent surgery. There is degenerative acromioclavicular joint spurring. There is right lower lobe linear atelectasis and a possible small right pleural effusion or right extrapleural fat. IMPRESSION: Right shoulder arthroplasty in expected position. Electronically signed by: Padmini Schaffer MD (06/11/2020 7:47 PM) [facility]
[2020-06-11] MEDS ORDERED: GABAPENTIN 300 MG CAPSULE. PO SCH (21:00)
[2020-06-11] MEDS ORDERED: FLUTICASONE 50MCG/NASAL SPRAY 16GM BOTTLE. NS SCH (21:00)
[2020-06-11] MEDS: ceFAZolin SODIUM 3 GM in IV DEXTROSE 5% 100ML 100 ML IV SCH (21:15)
[2020-06-11] MEDS: IV 1/2 NORMAL SALINE 1,000 ML IV SCH (21:48)
[2020-06-12 03:21] VITALS: BP 108/61
[2020-06-12] MEDS: ceFAZolin SODIUM 3 GM in IV DEXTROSE 5% 100ML 100 ML IV SCH ×2 (03:25→09:02)
[2020-06-12] MEDS: HEPARIN for SUB-Q USE 5,000 UNIT/ML VIAL. SQ SCH ×2 (05:28→14:00)
[2020-06-12] MEDS ORDERED: MAGNESIUM HYDROXIDE 2,400 MG/30 ML ORAL.SUSP. PO PRN (06:00)
[2020-06-12] MEDS ORDERED: LEVOTHYROXINE 25 MCG TABLET. PO SCH (06:00)
[2020-06-12 06:58] LABS: BASO % 0 % (0-3); EOS % 0 % (0-3); HEMATOCRIT 36.2 % (36.0-47.0); HEMOGLOBIN 11.5 g/dL (12.0-15.5); LYMPH # 2.5 x10^3/uL (1.0-4.8); LYMPH % 14 % (24-48); MEAN CORPUSCULAR HEMOGLOBIN 28 pg (25-35); MEAN CORPUSCULAR HGB CONC 32 g/dL (31-37); MEAN CORPUSCULAR VOLUME 87 fL (79-100); MONO # 1.3 x10^3/uL (0.0-1.1); MONO % 7 % (0-9); NEUT # 14.7 x10^3/uL (1.8-7.7); NEUT % 79 % (31-73); PLATELET COUNT 226 x10^3/uL (140-400); RED BLOOD COUNT 4.17 x10^6/uL (3.50-5.40); RED CELL DISTRIBUTION WIDTH 15.3 % (11.5-14.5); WHITE BLOOD COUNT 18.6 x10^3/uL (4.0-11.0)
[2020-06-12 07:00] VITALS: BP 130/63
[2020-06-12 07:11] LABS: CALCIUM 8.6 mg/dL (8.5-10.1); CREATININE 0.8 mg/dL (0.6-1.0); GFR 72.7; POTASSIUM 4.3 mmol/L (3.5-5.1)
[2020-06-12] MEDS: IV 1/2 NORMAL SALINE 1,000 ML IV SCH (07:20)
[2020-06-12] MEDS: INSULIN LISPRO 300 UNITS/3 ML VIAL. SQ SCH ×2 (08:00→12:00)
[2020-06-12] MEDS ORDERED: metFORMIN 500 MG TABLET PO SCH (08:00)
[2020-06-12] MEDS ORDERED: ASPIRIN 325 MG TABLET PO SCH (08:00)
[2020-06-12] MEDS ORDERED: SENNOSIDES/DOCUSATE 8.6/50MG TABLET. PO SCH (09:00)
[2020-06-12] MEDS ORDERED: NON FORMULARY ITEM (Albuterol Sulfate (Proventil Hfa) 1 PUFF) INH SCH (09:00)
[2020-06-12] MEDS ORDERED: ALBUTEROL SULFATE 2.5 MG/3 ML NEBU. NEB PRN (09:00)
[2020-06-12] MEDS ORDERED: MULTIVITAMIN with MINERAL TABLET. PO SCH (09:00)
--- NOTE | 2020-06-12 09:18 | PDOC ---
[employer] PROGRESS NOTE Date of Service DOS: DATE: 06/12/20 TIME: 09:12 Chief Complaint Chief Complaint Comminuted displaced right humeral head and neck fracture IFG - sliding scale Nephrolithiasis - cont hydration Plan: Consultation placed to orthopedic surgery Patient will be scheduled for surgery Will provide pain management PT/OT FEN - Cardiac diet; then n.p.o. after midnight PPX - Heparin FULL CODE Dispo - inpatient for above; patient names her as her surrogate decision-maker History of Present Illness History of Present Illness Ms Maharaj is a 64-year-old female w/ PMHx nephrolithiasis, breast cancer s/p lumpectomy, who presents to the ER after mechanical fall today. He states he tripped over a dog kennel and landed on her right arm. She initially complains of pain 10/10. Pain is worse with movement. She denies any head injury. X-ray in ER showed comminuted displaced right humeral head and neck fracture. Orthopedic surgery was consulted and recommended admission for ORIF. Admit patient for further medical management. Glucose elevated, no history of insulin use, but on meformin, presumably for IFG or prediabetes. 06/11: Pain is controlled when not moving her arm, she is resting it on pillow. No SOB or CP. To OR today. Right shoulder, open treatment of proximal humeral fracture, with tuberosity repair and with proximal humeral prosthetic replacement Passing flatus. Pain is well controlled. Surgical site looks good. Ortho was discussed with nursing. Patient stable for discharge and have outpatient follow-up. Of advised to continue sling and nonweightbearing status until Ortho follow-up outpatient and to take aspirin prophylaxis. She already has hydrocodone at home for outside active prescription and does have gabapentin which was recommended be 900 mg p.o. nightly I advised her to transition to 300 mg p.o. 3 times daily while she is in the recovery. I did take aspirin for 30 days. Vitals/I&O Vitals/I&O: Vital Signs Date Time Temp Pulse Resp B/P (MAP) Pulse Ox O2 Delivery O2 Flow Rate FiO2 06/12/20 07:00 98.2 106 16 130/63 (85) 98 Room Air 98.2 06/12/20 03:21 3.0 I & O 06/11/20 06/11/20 06/12/20 15:00 23:00 07:00 Intake Total 1600 ml 780 ml Output Total 300 ml 500 ml Balance 1300 ml 280 ml Physical Exam General: Alert, Cooperative Heart: Regular rate Abdomen: Soft Extremities: Other (The gross alignment of the right shoulder is normal and does not appear dislocated despite the CT scan results although the swelling and body habitus obscure the landmarks. The patient holds the shoulder splinted without any spontaneous motion. There is tenderness at the proximal humerus. There is no ecchymosis at this time. The skin is intact over the fracture and otherwise normal. There is slight swelling throughout the upper extremity. Sensory and motor function seem intact for the radial ulnar and median nerves but are difficult to assess completely because of the shoulder pain. Capillary refill is normal without evidence of ischemia or vascular injury. Rotator cuff strength is not possible to test today because of the shoulder pain) Labs Labs: Laboratory Tests Test 06/11/20 14:03 06/11/20 18:24 06/11/20 21:04 06/12/20 06:00 Glucose (Fingerstick) 147 mg/dL (70-99) 231 mg/dL (70-99) 214 mg/dL (70-99) White Blood Count 18.6 x10^3/uL (4.0-11.0) Red Blood Count 4.17 x10^6/uL (3.50-5.40) Hemoglobin 11.5 g/dL (12.0-15.5) Hematocrit 36.2 % (36.0-47.0) Mean Corpuscular Volume 87 fL (79-100) Mean Corpuscular Hemoglobin 28 pg (25-35) Mean Corpuscular Hemoglobin Concent 32 g/dL (31-37) Red Cell Distribution Width 15.3 % (11.5-14.5) Platelet Count 226 x10^3/uL (140-400) Neutrophils (%) (Auto) 79 % (31-73) Lymphocytes (%) (Auto) 14 % (24-48) Monocytes (%) (Auto) 7 % (0-9) Eosinophils (%) (Auto) 0 % (0-3) Basophils (%) (Auto) 0 % (0-3) Neutrophils # (Auto) 14.7 x10^3/uL (1.8-7.7) Lymphocytes # (Auto) 2.5 x10^3/uL (1.0-4.8) Monocytes # (Auto) 1.3 x10^3/uL (0.0-1.1) Eosinophils # (Auto) 0.0 x10^3/uL (0.0-0.7) Basophils # (Auto) 0.0 x10^3/uL (0.0-0.2) Sodium Level 141 mmol/L (136-145) Potassium Level 4.3 mmol/L (3.5-5.1) Chloride Level 106 mmol/L (98-107) Carbon Dioxide Level 31 mmol/L (21-32) Anion Gap 4 (6-14) Blood Urea Nitrogen 20 mg/dL (7-20) Creatinine 0.8 mg/dL (0.6-1.0) Estimated GFR (Cockcroft-Gault) 72.7 Glucose Level 155 mg/dL (70-99) Calcium Level 8.6 mg/dL (8.5-10.1) Test 06/12/20 08:10 Glucose (Fingerstick) 139 mg/dL (70-99) Assessment and Plan Assessmemt and Plan Problems Medical Problems: (1) 4-part fracture of surgical neck of right humerus, initial encounter for closed fracture Status: Acute (2) Humerus head fracture Status: Acute Goals of Care: Advance Care Planning: Total time spent [id number] with patient greater than 16 minutes in discussion with goals of care, comfort care, end-of-life care, pain management, code status Comment Review of Relevant I have reviewed the following items evette (where applicable) has been applied. Medications: Current Medications Medications (Trade) Dose Ordered Sig/Karsten Route PRN Reason Start Time Stop Time Status Last Admin Dose Admin Morphine Sulfate 5 mg/Ketorolac Tromethamine 30 mg/Ropivacaine 60 ml/Epinephrine HCl 0.5 mg/Sodium Chloride 100 ml @ 100 mls/hr 1X ONCE INT ART 06/11/20 13:00 06/11/20 13:59 DC 06/11/20 15:20 Ringer's Solution 1,000 ml @ 30 mls/hr Q24H IV 06/11/20 12:45 06/12/20 00:44 DC 06/11/20 14:26 Prochlorperazine Edisylate (Compazine) 5 mg PACU PRN PRN IVP NAUSEA, MRX1 06/11/20 12:45 06/11/20 22:00 DC 06/11/20 18:29 Cefazolin Sodium 3 gm/Dextrose 100 ml @ 200 mls/hr 1X PREOP PRN IV SEE COMMENTS 06/11/20 14:30 06/11/20 16:15 DC 06/11/20 14:44 Insulin Human Lispro (HumaLOG VIAL for OP,RR ONLY) 0-10 units PRN Q1HR PRN SQ PER PROTOCOL 06/11/20 14:45 06/11/20 22:00 DC 06/11/20 18:28 Vancomycin HCl (Vancomycin) 1 gm STK-MED ONCE .ROUTE 06/11/20 16:35 06/11/20 16:35 DC 06/11/20 16:49 Fentanyl Citrate (Fentanyl 2ml Vial) 25 mcg PRN Q1HR PRN IVP SEVERE PAIN 7-10 06/11/20 18:00 06/11/20 18:36 Multivitamins (Thera M Plus) 1 tab DAILY PO 06/12/20 09:00 06/12/20 09:02 Senna/Docusate Sodium (Senna Plus) 1 tab DAILY PO 06/12/20 09:00 06/12/20 09:02 Sodium Chloride 1,000 ml @ 75 mls/hr [id number] IV 06/11/20 18:00 06/11/20 21:48 Aspirin (Adrian Aspirin) 325 mg DAILYWBKFT PO 06/12/20 08:00 06/12/20 09:01 Cefazolin Sodium 3 gm/Dextrose 100 ml @ 200 mls/hr Q6H IV 06/11/20 21:00 06/12/20 09:29 06/12/20 09:02 Fluticasone Propionate (Flonase) 2 spray HS NS 06/11/20 21:00 06/11/20 21:17 Gabapentin (Neurontin) 600 mg HS PO 06/11/20 21:00 06/11/20 21:17 Levothyroxine Sodium (Synthroid) 25 mcg DAILY06 PO 06/12/20 06:00 06/12/20 05:27 Metformin HCl (Glucophage) 500 mg BIDWMEALS PO 06/12/20 08:00 06/12/20 09:02 Justifications for Admission Other Justification Right shoulder fracture MONICA JUAREZ MD Jun 12, 2020 09:18
[2020-06-12 10:48] LABS: % BANDS 7 % (0-9); % LYMPHS 8 % (24-48); % MONOS 6 % (0-10); % SEGS 79 % (35-66); PLT ESTIMATE ADEQUATE (ADEQUATE)
[2020-06-12] MEDS ORDERED: HYDR-2761 PO (10:57)
[2020-06-12] MEDS ORDERED: ASPI325T8 PO (10:57)
[2020-06-12 11:00] VITALS: BP 118/66
[2020-06-12] MEDS ORDERED: GABA300C18 PO (11:16)
--- NOTE | 2020-06-12 11:27 | PDOC3 ---
Discharge Summary Visit Information Date of Admission: Jun 10, 2020 Date of Discharge: Jun 12, 2020 Admitting Diagnosis: Right humerus fracture Final Diagnosis Problems Medical Problems: (1) 4-part fracture of surgical neck of right humerus, initial encounter for closed fracture Status: Acute (2) Humerus head fracture Status: Acute Brief Hospital Course Allergies Allergies Coded Allergies Type Severity Reaction Last Updated Verified Sulfa (Sulfonamide Antibiotics) Allergy Unknown 06/26/17 Yes Vital Signs Vital Signs Date Time Temp Pulse Resp B/P (MAP) Pulse Ox O2 Delivery O2 Flow Rate FiO2 06/12/20 08:00 Room Air 06/12/20 07:00 98.2 106 16 130/63 (85) 98 98.2 06/12/20 03:21 3.0 Lab Results Laboratory Tests Test 06/10/20 16:34 06/10/20 22:58 06/11/20 14:03 06/11/20 18:24 SARS-CoV-2 RNA (LOC) Negative (Negative) SARS-CoV-2 Antigen (Rapid) Negative (NEGATIVE) Glucose (Fingerstick) 149 mg/dL (70-99) 147 mg/dL (70-99) 231 mg/dL (70-99) Test 06/11/20 21:04 06/12/20 06:00 06/12/20 08:10 Glucose (Fingerstick) 214 mg/dL (70-99) 139 mg/dL (70-99) White Blood Count 18.6 x10^3/uL (4.0-11.0) Red Blood Count 4.17 x10^6/uL (3.50-5.40) Hemoglobin 11.5 g/dL (12.0-15.5) Hematocrit 36.2 % (36.0-47.0) Mean Corpuscular Volume 87 fL (79-100) Mean Corpuscular Hemoglobin 28 pg (25-35) Mean Corpuscular Hemoglobin Concent 32 g/dL (31-37) Red Cell Distribution Width 15.3 % (11.5-14.5) Platelet Count 226 x10^3/uL (140-400) Neutrophils (%) (Auto) 79 % (31-73) Lymphocytes (%) (Auto) 14 % (24-48) Monocytes (%) (Auto) 7 % (0-9) Eosinophils (%) (Auto) 0 % (0-3) Basophils (%) (Auto) 0 % (0-3) Neutrophils # (Auto) 14.7 x10^3/uL (1.8-7.7) Lymphocytes # (Auto) 2.5 x10^3/uL (1.0-4.8) Monocytes # (Auto) 1.3 x10^3/uL (0.0-1.1) Eosinophils # (Auto) 0.0 x10^3/uL (0.0-0.7) Basophils # (Auto) 0.0 x10^3/uL (0.0-0.2) Segmented Neutrophils % 79 % (35-66) Band Neutrophils % 7 % (0-9) Lymphocytes % 8 % (24-48) Monocytes % 6 % (0-10) Platelet Estimate Adequate (ADEQUATE) Sodium Level 141 mmol/L (136-145) Potassium Level 4.3 mmol/L (3.5-5.1) Chloride Level 106 mmol/L (98-107) Carbon Dioxide Level 31 mmol/L (21-32) Anion Gap 4 (6-14) Blood Urea Nitrogen 20 mg/dL (7-20) Creatinine 0.8 mg/dL (0.6-1.0) Estimated GFR (Cockcroft-Gault) 72.7 Glucose Level 155 mg/dL (70-99) Calcium Level 8.6 mg/dL (8.5-10.1) Laboratory Tests Test 06/11/20 14:03 06/11/20 18:24 06/11/20 21:04 06/12/20 06:00 Glucose (Fingerstick) 147 mg/dL (70-99) 231 mg/dL (70-99) 214 mg/dL (70-99) White Blood Count 18.6 x10^3/uL (4.0-11.0) Red Blood Count 4.17 x10^6/uL (3.50-5.40) Hemoglobin 11.5 g/dL (12.0-15.5) Hematocrit 36.2 % (36.0-47.0) Mean Corpuscular Volume 87 fL (79-100) Mean Corpuscular Hemoglobin 28 pg (25-35) Mean Corpuscular Hemoglobin Concent 32 g/dL (31-37) Red Cell Distribution Width 15.3 % (11.5-14.5) Platelet Count 226 x10^3/uL (140-400) Neutrophils (%) (Auto) 79 % (31-73) Lymphocytes (%) (Auto) 14 % (24-48) Monocytes (%) (Auto) 7 % (0-9) Eosinophils (%) (Auto) 0 % (0-3) Basophils (%) (Auto) 0 % (0-3) Neutrophils # (Auto) 14.7 x10^3/uL (1.8-7.7) Lymphocytes # (Auto) 2.5 x10^3/uL (1.0-4.8) Monocytes # (Auto) 1.3 x10^3/uL (0.0-1.1) Eosinophils # (Auto) 0.0 x10^3/uL (0.0-0.7) Basophils # (Auto) 0.0 x10^3/uL (0.0-0.2) Segmented Neutrophils % 79 % (35-66) Band Neutrophils % 7 % (0-9) Lymphocytes % 8 % (24-48) Monocytes % 6 % (0-10) Platelet Estimate Adequate (ADEQUATE) Sodium Level 141 mmol/L (136-145) Potassium Level 4.3 mmol/L (3.5-5.1) Chloride Level 106 mmol/L (98-107) Carbon Dioxide Level 31 mmol/L (21-32) Anion Gap 4 (6-14) Blood Urea Nitrogen 20 mg/dL (7-20) Creatinine 0.8 mg/dL (0.6-1.0) Estimated GFR (Cockcroft-Gault) 72.7 Glucose Level 155 mg/dL (70-99) Calcium Level 8.6 mg/dL (8.5-10.1) Test 06/12/20 08:10 Glucose (Fingerstick) 139 mg/dL (70-99) Brief Hospital Course Ms Maharaj is a 64-year-old female w/ PMHx nephrolithiasis, breast cancer s/p lumpectomy, who presents to the ER after mechanical fall today. He states he tripped over a dog kennel and landed on her right arm. She initially complains of pain 10/10. Pain is worse with movement. She denies any head injury. X-ray in ER showed comminuted displaced right humeral head and neck fracture. Orthopedic surgery was consulted and recommended admission for ORIF. Admit patient for further medical management. Glucose elevated, no history of insulin use, but on meformin, presumably for IFG or prediabetes. 06/11: Pain is controlled when not moving her arm, she is resting it on pillow. No SOB or CP. To OR today. Right shoulder, open treatment of proximal humeral fracture, with tuberosity repair and with proximal humeral prosthetic replacement Feeling well. Pain is well controlled. Afebrile. Using incentive spirometer bedside. Complaining that her sling does not fit and is too long. Consults: Ortho Problem list: Comminuted displaced right humeral head and neck fracture IFG - sliding scale Nephrolithiasis - cont hydration Greater than 30 minutes spent on d/c home with self care. F/u with ortho in 7-14 days Discharge Information Condition at Discharge: Improved Follow Up: Weeks (1) Disposition/Orders: D/C to Home Scheduled Aspirin (Aspirin) 325 Mg Tablet, 325 MG PO DAILYWBKFT for Thromboprophylaxis for 30 Days, #30 Prescribed by: MONICA JUAREZ MD on 06/12/20 1057 Fluticasone Propionate (Fluticasone Propionate Nasal [place]) 16 Gm [place].susp, 2 SPRAY NS HS for asthma, #1 Ref 11 (Reported) Entered as Reported by: SANDRA ULLOA on 06/11/201340 Last Action: Continued on 06/11/201801 by PATTIE PUGH MD Gabapentin (Gabapentin ) 300 Mg Capsule, 300 MG PO TID for NEUROGENIC PAIN for 30 Days, #90 Prescribed by: MONICA JUAREZ MD on 06/12/20 1116 Levothyroxine Sodium (Levothyroxine Sodium) 25 Mcg Tablet, 1 TAB PO DAILY for thyroid, #30 Ref 5 (Reported) Entered as Reported by: SANDRA ULLOA on 06/11/201340 Last Action: Continued on 06/11/201801 by PATTIE PUGH MD Metformin Hcl (Metformin Hcl) 500 Mg Tablet, 500 MG PO BIDWMEALS for ANTI- DIABETIC, Ref 0 (Reported) Entered as Reported by: SANDRA ULLOA on 06/11/201340 Last Action: Continued on 06/11/201801 by PATTIE PUGH MD Multivitamin (Multiple Vitamins) 1 Each Tablet, 1 TAB PO DAILY for supplement for 30 Days, #30 Ref 0 (Reported) Entered as Reported by: SANDRA ULLOA on 06/11/201340 Last Action: HELD on 06/11/201800 by PATTIE PUGH MD Scheduled PRN Albuterol Sulfate (Proventil Hfa) 6.7 Gm Hfa.aer.ad, 1 PUFF INH DAILY PRN for shortness of breath, (Reported) Entered as Reported by: SANDRA ULLOA on 06/11/201340 Last Action: Edited on 06/11/202238 by JOSE CARLOS RICHARDSON Hydrocodone Bit/Acetaminophen (Hydrocodone-Apap 5-325 ) 1 Tab Tablet, 1 TAB PO PRN Q4HRS PRN for PAIN for 6 Days, #20 Ref 0 Prescribed by: MONICA JUAREZ MD on 06/12/20 1115 Discontinued Medications Meloxicam (Mobic) 15 Mg Tablet, 1 TAB PO DAILY for pain, #30 Ref 1 (Reported) Entered as Reported by: SANDRA ULLOA on 06/11/201340 Last Action: HELD on 06/11/201800 by PATTIE PUGH MD Justicifation of Admission Dx: Justifications for Admission: Justification of Admission Dx: Yes Fracture: Fracture MONICA JUAREZ MD Jun 12, 2020 11:27
[2020-06-12] MEDS ORDERED: BISACODYL 10 MG SUPP.RECT. PR PRN (16:00)
== END 2020-06-12 14:05 | disposition home or self-care (01) | DRG 483 ==
LOC: ER 13:25 → ED HOLD 16:48 → 4 NORTH 21:43
PROVIDERS: ADMIT Family Medicine; ATTEND Family Medicine
PROC: 0RRJ0J7 Replacement of Right Shoulder Joint with Synthetic Substitute, Glenoid Surface, Open Approach (ICD-10-PCS; principal; 2020-06-11 14:00)
DX: S42.241A 4-part fracture of surgical neck of right humerus, initial encounter for closed fracture (principal); M19.011 Primary osteoarthritis, right shoulder; M77.9 Enthesopathy, unspecified; R73.03 Prediabetes; N20.0 Calculus of kidney; Z20.822 Contact with and (suspected) exposure to COVID-19; W01.0XXA Fall on same level from slipping, tripping and stumbling without subsequent striking against object, initial encounter; Y93.89 Activity, other specified; Y92.89 Other specified places as the place of occurrence of the external cause; Y99.8 Other external cause status; Z85.3 Personal history of malignant neoplasm of breast; Z87.442 Personal history of urinary calculi; Z88.2 Allergy status to sulfonamides
CPT/HCPCS: 36415; 73030; 73060; 73090; 73200; 73564; 80048; 82962; 85007; 85025; 87426; 96374; 96376; A4565; J0171; J0330; J0690; J0780; J1100; J1644; J1815; J1885; J2270; J2370; J2405; J2704; J2710; J2795; J3010; J3370; J3490; J7060; J7120; U0003; U0005; 97530-GP; 99285-25; G0378

== ENCOUNTER → 2020-12-13 | Outpatient (CLI) | payer BC ==
[~2020-12-13] MED LIST changes: +ASPI-630 PO; +ASPI325T8 PO; +DIPH25CA58 PO; +FLUT16SP NS; +GABA300C18 PO; +HYDR-2761 PO; +LEVO25TA4 PO; +MELO15TA23 PO; +MELO15TA6 PO; +METF500T16 PO; +MULT-121 PO; +PROVENTIL HFA6.7 G2 INH
[2020-12-13 10:13] LABS: BASO # 0.2 x10^3/uL (0.0-0.2); BASO % 1 % (0-3); EOS # 0.7 x10^3/uL (0.0-0.7); EOS % 5 % (0-3); HEMOGLOBIN 13.1 g/dL (12.0-15.5); LYMPH # 3.3 x10^3/uL (1.0-4.8); LYMPH % 25 % (24-48); MEAN CORPUSCULAR HEMOGLOBIN 27 pg (25-35); MEAN CORPUSCULAR HGB CONC 32 g/dL (31-37); MEAN CORPUSCULAR VOLUME 84 fL (79-100); MONO # 0.9 x10^3/uL (0.0-1.1); MONO % 7 % (0-9); NEUT # 8.4 x10^3/uL (1.8-7.7); NEUT % 63 % (31-73); PLATELET COUNT 243 x10^3/uL (140-400); RED BLOOD COUNT 4.87 x10^6/uL (3.50-5.40); RED CELL DISTRIBUTION WIDTH 16.9 % (11.5-14.5); WHITE BLOOD COUNT 13.5 x10^3/uL (4.0-11.0)
[2020-12-13 10:24] LABS: PROTHROMBIN TIME PATIENT 13.2 SEC (11.7-14.0)
[2020-12-13 10:25] LABS: ALBUMIN 3.2 g/dL (3.4-5.0); CALCIUM 9.3 mg/dL (8.5-10.1); CREATININE 0.8 mg/dL (0.6-1.0); GFR 72.4
[2020-12-14 01:22] LABS: HEMOGLOBIN A1C 8.6 % (4.8-5.6)
== END ==
LOC: SURGPAT 09:15
PROVIDERS: ATTEND Orthopaedic Surgery
DX: Z01.812 Encounter for preprocedural laboratory examination (principal); M25.511 Pain in right shoulder
CPT/HCPCS: 36415; 80048; 82040; 82306; 83036; 85025; 85610; 85651; 85730; 87641